=== PATIENT | female | born 1975 | race Caucasian/White ===

== ENCOUNTER → 2023-02-25 14:55 | Outpatient (CLI) | payer OTHER, SELFPAY ==
[2023-02-25 16:26] LABS: COVID-19 CEPHEID 4-PLEX PCR Negative (Negative); Influenza A - CEPHEID Flu A NEGATIVE (NEGATIVE); Influenza B - CEPHEID Flu B NEGATIVE (NEGATIVE); Respiratory Syncytial Virus Negative (Negative)
== END ==
PROVIDERS: Visit Provider Physician Assistant
DX: J02.9 Acute pharyngitis, unspecified (principal); R05.1 Acute cough
CPT/HCPCS: 0241U; 87070

== ENCOUNTER → 2023-03-08 12:47 | Outpatient (CLI) | payer OTHER, SELFPAY ==
--- NOTE | 2023-03-08 12:49 | DI.RAD.S_ITS ---
PROCEDURE: XR CHEST 2V INDICATIONS: Cough. TECHNIQUE: 2 views of the chest were acquired. COMPARISON: None. FINDINGS: Surgical changes and devices: None. Lungs and pleura: The lungs appear hyperinflated, a finding that can be seen in the setting of COPD or as result of pronounced inspiratory effort for the exam. No suspicious focal airspace opacity identified. No pleural effusions or pneumothorax. Mediastinum: Mediastinal contours are normal. Heart size is normal. Bones and chest wall: No suspicious bony abnormalities. Soft tissues appear unremarkable. IMPRESSION: No acute cardiopulmonary abnormality. Dictated by: Chito Fischer M.D. on 03/08/2023 at 13:11 Approved by: Chito Fischer M.D. on 03/08/2023 at 13:18
== END ==
PROVIDERS: Referring Provider Registered Nurse; Visit Provider Registered Nurse
DX: R05.9 Cough, unspecified (principal)
CPT/HCPCS: 71046

== ENCOUNTER → 2023-06-27 14:48 | Outpatient (CLI) | payer OTHER, SELFPAY ==
--- NOTE | 2023-06-27 14:51 | DI.RAD.S_ITS ---
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 COMPARISON: None. FINDINGS: Airway: The airway appears patent. Soft tissues: Prevertebral soft tissues are normal in thickness. The epiglottis and aryepiglottic folds appear normal. No soft tissue gas. Bones: No suspicious bony lesions. Visualized cervical spine is normally aligned. IMPRESSION: No acute abnormality. Dictated by: Hari Horan M.D. on 06/27/2023 at 16:50 Approved by: Hari Horan M.D. on 06/27/2023 at 16:50
[2023-06-27 16:25] LABS: Add Manual Diff / Slide Review NO; Basophils Absolute Auto 100 /uL (0-100); Basophils Percent Auto 0.6 % (0-2); Eosinophils Absolute Auto 100 /uL (0-450); Eosinophils Percent Auto 1.3 % (2-4); Hematocrit 38.1 % (36-46); Hemoglobin 12.2 g/dL (12.0-16.0); Lymphocytes Absolute Auto 2500 /uL (1100-4500); Lymphocytes Percent Auto 29.2 % (25-40); Mean Corpuscular HGB Conc 32.1 % (30-36); Mean Corpuscular Volume 68.7 fL (80-100); Monocytes Absolute Auto 500 /uL (0-900); Monocytes Percent Auto 5.4 % (3-14); Neutrophils Absolute Auto 5400 /uL (1500-7000); Neutrophils Percent Auto 63.5 % (50-75); Platelet Count 219 X10^3/uL (150-400); Red Blood Cell Count 5.55 X10^6/uL (4.0-5.2); Red Cell Distribution Width 15.5 % (11.6-14.8); White Blood Cell Count 8.5 X10^3/uL (4.5-11.0)
[2023-06-27 16:58] LABS: Microcytosis 1+
[2023-06-27 17:07] LABS: Alanine Aminotransferase 36 IU/L (<35); Albumin 4.1 g/dL (3.5-5.0); Albumin Globulin Ratio 1.3 (1.0-2.8); Alkaline Phosphatase 82 U/L (38-126); Aspartate Aminotransferase 42 IU/L (14-36); BUN Creatinine Ratio 21.2 (6-22); Bilirubin Total 0.5 mg/dL (0.2-1.3); Blood Urea Nitrogen 14 mg/dL (7-17); Carbon Dioxide 31 mmol/L (22-32); Chloride 102 mmol/L (98-107); Cholesterol 219 mg/dL (140-199); Estimated Glomerular Filt Rate > 60 mL/min (>60); Globulin 3.1 g/dL (1.7-4.1); Glucose 91 mg/dL (70-100); HDL Cholesterol 73 mg/dL (40-60); HEMOLYSIS < 15 (0-50); LDL Cholesterol Calculated 129 mg/dL (<100); Potassium 3.7 mmol/L (3.4-5.1); Sodium 138 mmol/L (137-145); Total Protein 7.2 g/dL (6.3-8.2); Triglycerides 84 mg/dL (35-150)
[2023-06-27 18:20] LABS: Vitamin D 25 Hydroxy (D3) 30.5 ng/mL (30.0-100.0)
[2023-06-28 09:55] LABS: HEMOLYSIS < 15 (0-50); Iron 90 ug/dL (37-170)
[2023-06-28 10:06] LABS: Percent Iron Saturation 29 % (15-50); Total Iron Binding Capacity 311 ug/dL (265-497); Transferrin 272 mg/dL (206-381)
== END ==
PROVIDERS: PCP Family Medicine; Referring Provider Family Medicine; Visit Provider Family Medicine
DX: Z13.220 Encounter for screening for lipoid disorders (principal); M24.20 Disorder of ligament, unspecified site; Z72.0 Tobacco use
CPT/HCPCS: 36415; 70360; 80053; 80061; 82306; 83540; 83550; 85025

== ENCOUNTER → 2023-07-03 07:26 | Outpatient (CLI) | payer OTHER, SELFPAY ==
--- NOTE | 2023-07-03 07:27 | DI.US.S_ITS ---
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 COMPARISON: None. FINDINGS: Stenosis calculations are based on SRU (Society of Radiologists in Ultrasound) criteria. Right side: Brachial blood pressure: 94 mm Hg. Common carotid artery peak systolic velocity: 92 cm/sec. Internal carotid artery peak systolic velocity: 94 cm/sec. Internal carotid artery end diastolic velocity: 38 cm/sec. External carotid artery peak systolic velocity: 80 cm/sec. ICA/CCA peak systolic ratio: 1 . Luciano scale imaging description: No plaque Percent internal carotid artery stenosis: Normal. Vertebral artery: Flow direction is antegrade. Left side: Brachial blood pressure: 93 mm Hg. Common carotid artery peak systolic velocity: 80 cm/sec. Internal carotid artery peak systolic velocity: 91 cm/sec. Internal carotid artery end diastolic velocity: 38 cm/sec. External carotid artery peak systolic velocity: 88 cm/sec. ICA/CCA peak systolic ratio: 1.1 . Luciano scale imaging description: No plaque Percent internal carotid artery stenosis: Normal . Vertebral artery: Flow direction is antegrade. IMPRESSION: Normal bilateral internal carotid arteries with no hemodynamically significant stenosis. Dictated by: Vadim Bush M.D. on 07/03/2023 at 9:15 Approved by: Vadim Bush M.D. on 07/03/2023 at 9:17
== END ==
LOC: US 07:26
PROVIDERS: PCP Family Medicine; Referring Provider Family Medicine; Visit Provider Family Medicine
DX: M24.20 Disorder of ligament, unspecified site (principal)
CPT/HCPCS: 93880

== ENCOUNTER → 2023-07-03 15:44 | Outpatient (CLI) | payer OTHER, SELFPAY ==
--- NOTE | 2023-07-03 15:45 | DI.MG.S_ITS ---
BILATERAL DIGITAL SCREENING MAMMOGRAM 3D/2D WITH CAD: 07/03/2023 CLINICAL: Routine screening. No prior exams were available for comparison. Both breasts are extremely dense, which lowers the sensitivity of mammography (category d />75% glandular tissue). Current study was also evaluated with a Computer Aided Detection (CAD) system. No significant masses, calcifications, or other findings are seen in either breast. IMPRESSION: NEGATIVE There is no mammographic evidence of malignancy. A 1 year screening mammogram is recommended. Based on the Tyrer Cuzick model (a risk assessment model) the patient's lifetime risk is 18.4% and her 10 year risk is 4.2%. According to the ACR, ACS, and NCCN guidelines, an annual breast MRI exam along with mammogram is recommended if the patient's lifetime risk is 20% or greater. This exam was interpreted at Station ID: [id number]. NOTE: For mammograms, a report in lay terms will be sent to the patient. Approximately 15% of breast malignancies will not be visualized mammographically. In the management of a palpable breast mass, a negative mammogram must not discourage biopsy of a clinically suspicious lesion. Electronically Signed By: Christian sotelo/flash:07/04/2023 15:37:04 letter sent: Normal Exam ACR BI-RADS Category 1: Negative [id number]
== END ==
PROVIDERS: PCP Family Medicine; Referring Provider Family Medicine; Visit Provider Family Medicine
DX: Z12.31 Encounter for screening mammogram for malignant neoplasm of breast (principal); R92.30 Dense breasts, unspecified
CPT/HCPCS: 77063; 77067

== ENCOUNTER → 2023-07-17 10:43 | Outpatient (CLI) | payer OTHER, SELFPAY ==
--- NOTE | 2023-07-17 10:44 | DI.RAD.S_ITS ---
Bone Density Report Name: ANGELIKA NAQVI Age: 48 Sex: Female Ethnicity: White Date of : 1975 Indication: postmenopausal; Referring Provider: WELLINGTON VENTURA Study: Bone densitometry was performed. Exam Date: July 17, 2023 Accession number: [id number] Bone Density: Region BMD T-score Z-score Classification AP Spine(L1-L4) 0.812 -2.1 -1.5 Osteopenia Femoral Neck (Left) 0.678 -1.5 -0.9 Osteopenia Total Hip (Left) 0.689 -2.1 -1.6 Osteopenia Femoral Neck (Right) 0.671 -1.6 -0.9 Osteopenia Total Hip (Right) 0.668 -2.2 -1.8 Osteopenia Total Hip Mean 0.679 -2.2 -1.7 Osteopenia World Health Organization criteria for BMD impression classify patients as: Normal (T-score at or above -1.0), Osteopenia (T-score between -1.0 and -2.5), or Osteoporosis (T-score at or below -2.5). 10-year Fracture Risk(1): Major Osteoporotic Fracture 4.1% Hip Fracture 0.7% Reported Risk Factors: [place] (), Neck BMD=0.671, BMI=20.1, smoking (1) FRAX(R) Version 3.08. Fracture probability calculated for an untreated patient. Fracture probability may be lower if the patient has received treatment. Impression: The patient has low bone mass, based on the Right Total Hip T-score. The patient has an estimated ten-year risk of hip fracture of 0.7% and an estimated ten-year risk of major fracture of 4.1%, based on the WHO FRAX algorithm. The patient has risk factors, including: smoking. Discussion: BONE DENSITY IS LOW AT ONE OR MORE SKELETAL SITES. This patient's lowest T-score is low at one or more skeletal sites. It meets the World Health Organization's (WHO) criteria for low bone mass (T-score between -1.0 and -2.5). The patient's 10-year risk of fracture as calculated by FRAX is less than the threshold where pharmacological therapy is recommended by the National Osteoporosis Foundation (NOF). However, all treatment decisions require clinical judgment and consideration of individual patient factors, including patient preferences, comorbidities, previous drug use, risk factors not captured in the FRAX model (e.g., frailty, falls, vitamin D deficiency, increased bone turnover, interval significant decline in bone density) and possible under or overestimation of fracture risk by FRAX. The patient should follow a healthful lifestyle (good nutrition with adequate calcium and vitamin D, and appropriate weight-bearing exercise). Follow-Up: Consider repeating this study in 2 to 3 years to reassess this patient's status, or sooner if there is some new clinical indication. Reported by: CRYSTAL REYNOLDS MD on 07/17/2023 11:16:00 AM.
== END ==
LOC: RAD 10:44
PROVIDERS: PCP Family Medicine; Referring Provider Family Medicine; Visit Provider Family Medicine
DX: Z13.820 Encounter for screening for osteoporosis (principal); M85.88 Other specified disorders of bone density and structure, other site; Z78.0 Asymptomatic menopausal state; Z72.0 Tobacco use
CPT/HCPCS: 77080

== ENCOUNTER → 2023-09-15 11:55 | Outpatient (CLI) | payer OTHER, SELFPAY ==
--- NOTE | 2023-09-15 11:57 | DI.CT.S_ITS ---
PROCEDURE: CT SOFT TISSUE NECK W CON INDICATIONS: Tyler's synd, bruxism, ongoing neck pain, hx of styloid rem TECHNIQUE: After the administration of intravenous contrast, 3.0 mm axial sections acquired from the sella to the aortic arch. Additional oblique axial 3.0 mm sections acquired through the pharynx. 3 mm thick coronal and sagittal reformats were generated. For radiation dose reduction, the following was used: automated exposure control. COMPARISON: [facility], , XR SOFT TISSUE NECK, 06/27/2023, 15:06. FINDINGS: Image quality: Excellent. Lymph nodes: No enlarged lymph nodes seen throughout the neck. Vessels: Visualized vasculature appears patent. Neck spaces: The oropharynx, nasopharynx, and pharynx demonstrate no mucosal lesions. The vocal cords, false vocal cords, pyriform sinuses, epiglottis, vallecula, and tongue base all appear normal. Extramucosal spaces appear unremarkable. Glands: The parotid and submandibular glands appear normal. Thyroid gland is unremarkable. Miscellaneous: Visualized brain and orbits appear normal. Lung apices appear clear. Superficial soft tissues appear normal. Bones: No suspicious bony lesions. Visualized sinuses and mastoids appear unremarkable. There is no visualized elongation/heavy calcification of the styloid. There is reversal of cervical curvature. There is an overall appearance of teeth crowding without visualized fracture. IMPRESSION: Reversal of cervical curvature. Dictated by: Tara Morel M.D. on 09/15/2023 at 16:45 Approved by: Tara Morel M.D. on 09/15/2023 at 16:55
== END ==
LOC: CT 11:56
PROVIDERS: PCP Family Medicine; Referring Provider Family Medicine; Visit Provider Family Medicine
DX: M26.609 Unspecified temporomandibular joint disorder, unspecified side (principal); F45.8 Other somatoform disorders; M24.20 Disorder of ligament, unspecified site; M54.2 Cervicalgia; G89.29 Other chronic pain
CPT/HCPCS: 70491; Q9967

== ENCOUNTER 2023-11-30 23:14 | Emergency (ER) | payer OTHER, SELFPAY ==
[2023-11-30 23:45] VITALS: BP 121/68; PULSE 68; RESP 18; TEMP 36.4; O2SAT 98; BMI 19.5
--- NOTE | 2023-12-01 01:25 | PC.NURSE ---
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 I answered. This is Eliot Mai's . I need someone to fucking help my she's in pain. I said I understand your frustration, but right now we are extremely busy. Sergei responded with I don't fucking care. And if someone doesn't fucking help my , I'm going to make a big fuckin' scene unless you get someone out here. Told Sergei, Sir we are very busy, as you heard I had to overhead page a trauma. Well you can spare one fucking person to come out here and help my god damn . I hung up the phone and told VERO Nash.
--- NOTE | 2023-12-01 02:02 | PC.NURSE ---
911 was called by patient or family and was seen by medics. Medics stated was calmed down and they were going to try a different hospital.
--- NOTE | 2023-12-01 15:50 | ED.DENTAL ---
HPI - Dental/Oral General Chief complaint: Dental/Oral Stated complaint: infected tooth and jaw Source: patient Mode of arrival: Ambulatory History of Present Illness HPI Narrative: Patient left without seeing provider Related Data Home Medications Medication Instructions Recorded Confirmed hydroxyzine HCl 25 mg tablet 25 mg PO DAILY 05/23/23 09/30/23 clonazepam 0.5 mg tablet mg PO 09/06/23 09/30/23 escitalopram oxalate 10 mg tablet mg PO 09/06/23 09/30/23 hydroxyzine HCl 10 mg tablet 10 mg PO ONCE PM 09/06/23 09/30/23 Previous Rx's Medication Instructions Recorded albuterol sulfate 90 mcg/actuation 2 puff inhalation Q4-6H PRN 06/27/23 aerosol inhaler shortness of breath or wheezing #8.5 grams Allergies Allergy/AdvReac Type Severity Reaction Status Date / Time No Known Drug Allergies Allergy Unverified 09/30/23 11:04 Patient History Social History Smoking Status: Current every day smoker Smoking Status: Current every day smoker alcohol intake frequency: holidays/special occasions only Substance Use Type: marijuana Exam Initial Vital Signs Initial Vital Signs: Vital Signs Temperature 97.5 F L 11/30/23 23:45 Pulse Rate 68 11/30/23 23:45 Respiratory Rate 18 11/30/23 23:45 Blood Pressure 121/68 11/30/23 23:45 Pulse Oximetry 98 11/30/23 23:45 Oxygen Delivery Method Room Air 11/30/23 23:45 Discharge Plan Departure Patient Disposition: Left Without Being Seen Clinical Impression: Patient left without being seen Prescriptions: No Action albuterol sulfate 90 mcg/actuation HFA aerosol inhaler 2 puff inhalation Q4-6H PRN (Reason: shortness of breath or wheezing) Qty: 8.5 0RF hydroxyzine HCl 25 mg tablet 25 mg PO DAILY clonazepam 0.5 mg tablet PO escitalopram oxalate 10 mg tablet PO hydroxyzine HCl 10 mg tablet 10 mg PO ONCE PM
== END 2023-12-01 02:07 | disposition left against medical advice (07) ==
PROVIDERS: Emergency Provider Emergency Medicine; PCP Family Medicine
DX: R68.84 Jaw pain (principal)
CPT/HCPCS: 99281

== ENCOUNTER → 2023-12-09 14:17 | Outpatient (CLI) | payer SELFPAY | PROVIDERS: PCP Family Medicine; Visit Provider Family Medicine | DX: N89.8 Other specified noninflammatory disorders of vagina (principal) | CPT/HCPCS: 87210 ==

== ENCOUNTER → 2024-05-11 14:27 | Outpatient (CLI) | payer OTHER, SELFPAY ==
[2024-05-11 15:09] LABS: Add Manual Diff / Slide Review NO; Basophils Absolute Auto 0 /uL (0-100); Basophils Percent Auto 0.5 % (0-2); Eosinophils Absolute Auto 100 /uL (0-450); Eosinophils Percent Auto 1.2 % (2-4); Hemoglobin 11.5 g/dL (12.0-16.0); Lymphocytes Absolute Auto 2200 /uL (1100-4500); Lymphocytes Percent Auto 39.1 % (25-40); Mean Corpuscular HGB Conc 31.9 % (30-36); Mean Corpuscular Hemoglobin 22.3 PG (26-34); Monocytes Absolute Auto 400 /uL (0-900); Monocytes Percent Auto 7.4 % (3-14); Neutrophils Absolute Auto 2900 /uL (1500-7000); Neutrophils Percent Auto 51.8 % (50-75); Platelet Count 221 X10^3/uL (150-400); Red Blood Cell Count 5.15 X10^6/uL (4.0-5.2); Red Cell Distribution Width 15.4 % (11.6-14.8); White Blood Cell Count 5.5 X10^3/uL (4.5-11.0)
[2024-05-11 15:10] LABS: Reticulocyte Count, Percent 1.1 % (1.1-2.6)
[2024-05-11 15:48] LABS: Alanine Aminotransferase 29 IU/L (<35); Albumin 3.9 g/dL (3.5-5.0); Albumin Globulin Ratio 1.6 (1.0-2.8); Alkaline Phosphatase 82 U/L (38-126); Aspartate Aminotransferase 42 IU/L (14-36); BUN Creatinine Ratio 21.8 (6-22); Bilirubin Total 0.3 mg/dL (0.2-1.3); Blood Urea Nitrogen 17 mg/dL (7-17); Calcium 8.8 mg/dL (8.4-10.2); Carbon Dioxide 29 mmol/L (22-32); Chloride 105 mmol/L (98-107); Estimated Glomerular Filt Rate > 60 mL/min (>60); Globulin 2.4 g/dL (1.7-4.1); Glucose 93 mg/dL (70-100); HEMOLYSIS < 15 (0-50); Sodium 138 mmol/L (137-145); Total Protein 6.3 g/dL (6.3-8.2)
[2024-05-11 16:16] LABS: TSH w/ Reflex to FT4 1.46 uIU/mL (0.47-4.68)
[2024-05-11 16:24] LABS: Ferritin 23 ng/mL (11-264)
== END ==
LOC: LAB 14:27
PROVIDERS: PCP Family Medicine; Referring Provider Family Medicine; Visit Provider Family Medicine
DX: R71.8 Other abnormality of red blood cells (principal); M24.20 Disorder of ligament, unspecified site; M54.2 Cervicalgia; R19.4 Change in bowel habit; K13.79 Other lesions of oral mucosa; R51.9 Headache, unspecified; R25.2 Cramp and spasm; Z72.0 Tobacco use
CPT/HCPCS: 36415; 80053; 82728; 84443; 85025; 85045; 86038

== ENCOUNTER → 2024-07-04 13:04 | Outpatient (CLI) | payer OTHER, SELFPAY ==
--- NOTE | 2024-07-04 13:06 | DI.CT.S_ITS ---
PROCEDURE: CT FACIAL BONES WO CON INDICATIONS: Persistent mouth pain TECHNIQUE: Noncontrast 2.5 mm thick axial images acquired from the mandible through the frontal sinuses, with coronal and sagittal reformatting. For radiation dose reduction, the following was used: automated exposure control, adjustment of mA and/or kV according to patient size. COMPARISON: [facility], CT, CT SOFT TISSUE NECK W CON, 09/15/2023, 12:31. FINDINGS: Image quality: Diagnostic Bones: No displaced fracture of the mandible. The zygomatic arches are intact. The orbital olvera appear intact. Pterygoid plates are intact. Nasal bone appears unremarkable. There are elongated styloid processes bilaterally. The right styloid process reaches the axial level of the odontoid process. The left styloid process reaches the level of the tonsillar tissues at the axial level of the C2-C3 disc space. Prior dental work. No significant periapical opacities. Sinuses and mastoids: Mastoids and paranasal sinuses are clear Soft tissues: No suspicious calcifications. No fluid collection. 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 Other findings above Dictated by: Christian Melara M.D. on 07/04/2024 at 19:09 Approved by: Christian Melara M.D. on 07/04/2024 at 19:14
== END ==
PROVIDERS: PCP Family Medicine; Referring Provider Family Medicine; Visit Provider Family Medicine
DX: M54.2 Cervicalgia (principal); F45.8 Other somatoform disorders; M24.20 Disorder of ligament, unspecified site; M26.609 Unspecified temporomandibular joint disorder, unspecified side; Z72.0 Tobacco use
CPT/HCPCS: 70486

== ENCOUNTER 2024-07-17 15:47 | Emergency (ER) | payer OTHER, SELFPAY ==
[2024-07-17 15:57] VITALS: BP 133/88; PULSE 65; RESP 17; TEMP 36.6; O2SAT 100
--- NOTE | 2024-07-17 16:26 | ED_ITS ---
HPI - Headache <Frandy Leon MD - Last Filed: 07/25/24 04:53> General Chief Complaint: Headache Stated Complaint: facial numbness, headache Time Seen by Provider: 07/17/24 16:26 Mode of arrival: Ambulatory History of Present Illness HPI Narrative: Patient is a female with a history of [place] syndrome who presents with worsening headache, facial numbness, and swelling in the mouth. She reports that her symptoms have been gradually worsening over the past week, with significant numbness on the right side of her face starting today. She has a history of a right-sided styloidectomy performed three years ago in [place], with approximately [address] scans have shown that the styloid process on the left side is now in contact with the C2-C3 vertebrae, possibly causing nerve compression. The patient has been experiencing pain despite being on gabapentin and an antiviral medication (acyclovir or valacyclovir) prescribed by her PCP. She also reports changes in her mouth observed by her dentist, including swelling and possible mandibular jhoana growth. The patient has been referred to an ENT and is scheduled for an appointment next month. She denies any leg or arm numbness, slurred speech, or significant changes in vision, although she notes some visual disturbances with eye movement. Medications: Gabapentin, antiviral medication (acyclovir or valacyclovir). Past Medical History: [place] syndrome, right-sided styloidectomy, diabetes. Surgical History: Right-sided styloidectomy performed three years ago in [place]. Related Data Home Medications Medication Instructions Recorded Confirmed dextroamphetamine-amphetamine ER 1 cap PO QAM PRN 06/22/24 06/22/24 10 mg 24hr capsule,extend release paroxetine HCl 20 mg tablet 20 mg PO DAILY 06/22/24 06/22/24 Previous Rx's Medication Instructions Recorded albuterol sulfate 90 mcg/actuation 2 puff inhalation Q4-6H PRN 06/27/23 aerosol inhaler shortness of breath or wheezing #8.5 grams benzonatate 200 mg capsule 200 mg PO BID PRN cough #14 caps 04/09/24 pregabalin 25 mg capsule 25 mg PO DAILY #30 caps 06/22/24 valacyclovir 500 mg tablet 500 mg PO BID #180 tabs 06/25/24 Allergies Allergy/AdvReac Type Severity Reaction Status Date / Time No Known Drug Allergies Allergy Verified 06/22/24 07:29 Review of Systems <Frandy Leon MD - Last Filed: 07/25/24 04:53> Review of Systems Narrative: Constitutional: Reports worsening headache and facial numbness. ENT: Reports swelling and changes in the mouth, possible mandibular jhoana growth. Neurological: Reports facial numbness, denies leg or arm numbness, slurred speech, or significant changes in vision, notes some visual disturbances with eye movement. Patient History <Frandy Leon MD - Last Filed: 07/25/24 04:53> Social History Smoking Status: Current every day smoker Smoking Status: Current every day smoker alcohol intake frequency: holidays/special occasions only Exam <Frandy Leon MD - Last Filed: 07/25/24 04:53> Narrative Exam Narrative: General: Well appearing, well nourished, in no distress. Skin: Good turgor, no rash, unusual bruising or prominent lesions. Head: Normocephalic, atraumatic. HEENT: Conjunctiva clear, EOM intact, PERRL, mucous membranes moist. Swelling and inflammation in the mouth, possible growth behind the back right tooth, tenderness near the styloidectomy incision. Neck: Supple, normal ROM. Heart: Regular rate and rhythm, no murmur or gallop or rubs. Lungs: Clear to auscultation. No rales, rhonchi, or wheezes. Abdomen: Soft and nontender. Bowel sounds normal. No mass or hernia. Back: Spine normal without deformity or tenderness, no CVA tenderness. Extremities: No deformities, edema. Peripheral pulses intact. Neurologic: CN 2-12 normal. Normal sensation and motor exam. Facial numbness on the right side, no focal deficits, normal coordination and strength tests. Psychiatric: Oriented X3. Normal mood and affect. Initial Vital Signs Initial Vital Signs: Vital Signs Temperature 98 F 07/17/24 15:57 Pulse Rate 65 07/17/24 15:57 Respiratory Rate 17 07/17/24 15:57 Blood Pressure 133/88 07/17/24 15:57 Pulse Oximetry 100 07/17/24 15:57 Oxygen Delivery Method Room Air 07/17/24 15:57 <Memo Gaona MD - Last Filed: 07/18/24 04:20> Initial Vital Signs Initial Vital Signs: Vital Signs Temperature 98 F 07/17/24 15:57 Pulse Rate 65 07/17/24 15:57 Respiratory Rate 17 07/17/24 15:57 Blood Pressure 133/88 07/17/24 15:57 Pulse Oximetry 100 07/17/24 15:57 Oxygen Delivery Method Room Air 07/17/24 15:57 Course <Frandy Leon MD - Last Filed: 07/25/24 04:53> Orders Ordered: Discontinued Medications Acetaminophen (Acetaminophen 325 Mg Tablet) 650 mg PO Q6H PRN PRN Reason: Fever/Mild Pain (1-3) Dexamethasone (Dexamethasone 10 Mg/Ml Vial) 10 mg IV NOW ONE Stop: 07/17/24 21:54 Last Admin: 07/17/24 22:05 Dose: 10 mg Documented By: JAMIE Diphenhydramine HCl (Diphenhydramine 50 Mg/Ml Vial) 25 mg IV NOW ONE Stop: 07/17/24 17:52 Last Admin: 07/17/24 18:51 Dose: 25 mg Documented By: JEANNIE Lactated Ringer's (Lactated Ringers) 1,000 mls @ 1,000 mls/hr IV BOLUS ONE Stop: 07/17/24 18:50 Last Infusion: 07/17/24 19:45 Dose: Infused Documented By: Admin: 07/17/24 18:48 Dose: 1,000 mls/hr Documented By: JEANNIE Ketorolac Tromethamine (Ketorolac 30 Mg/Ml Vial) 15 mg IV NOW ONE Stop: 07/17/24 21:54 Last Admin: 07/17/24 22:05 Dose: 15 mg Documented By: JAMIE Ondansetron HCl (Ondansetron 4 Mg/2 Ml Inj) 4 mg IV NOW PRN PRN Reason: Nausea And Vomiting Ondansetron HCl (Ondansetron 4 Mg Odt Prepack) 1 bottle MISC DIRECTED ONE Stop: 07/17/24 21:58 Last Admin: 07/17/24 22:05 Dose: 1 bottle Documented By: JAMIE Prochlorperazine (Prochlorperazine 10 Mg/2 Ml Vial) 5 mg IV NOW ONE Stop: 07/17/24 17:52 Last Admin: 07/17/24 18:52 Dose: 5 mg Documented By: JEANNIE Vital Signs Vital signs: Vital Signs - 8 hr 07/17/24 21:15 07/17/24 21:30 07/17/24 22:00 Pulse Rate 69 75 68 Respiratory Rate 16 16 16 Blood Pressure 124/72 126/67 117/69 Pulse Oximetry 97 96 96 Oxygen Delivery Method Room Air Room Air Room Air <Memo Gaona MD - Last Filed: 07/18/24 04:20> Orders Ordered: Discontinued Medications Acetaminophen (Acetaminophen 325 Mg Tablet) 650 mg PO Q6H PRN PRN Reason: Fever/Mild Pain (1-3) Dexamethasone (Dexamethasone 10 Mg/Ml Vial) 10 mg IV NOW ONE Stop: 07/17/24 21:54 Last Admin: 07/17/24 22:05 Dose: 10 mg Documented By: JAMIE Diphenhydramine HCl (Diphenhydramine 50 Mg/Ml Vial) 25 mg IV NOW ONE Stop: 07/17/24 17:52 Last Admin: 07/17/24 18:51 Dose: 25 mg Documented By: JEANNIE Lactated Ringer's (Lactated Ringers) 1,000 mls @ 1,000 mls/hr IV BOLUS ONE Stop: 07/17/24 18:50 Last Infusion: 07/17/24 19:45 Dose: Infused Documented By: Admin: 07/17/24 18:48 Dose: 1,000 mls/hr Documented By: JEANNIE Ketorolac Tromethamine (Ketorolac 30 Mg/Ml Vial) 15 mg IV NOW ONE Stop: 07/17/24 21:54 Last Admin: 07/17/24 22:05 Dose: 15 mg Documented By: JAMIE Ondansetron HCl (Ondansetron 4 Mg/2 Ml Inj) 4 mg IV NOW PRN PRN Reason: Nausea And Vomiting Ondansetron HCl (Ondansetron 4 Mg Odt Prepack) 1 bottle MISC DIRECTED ONE Stop: 07/17/24 21:58 Last Admin: 07/17/24 22:05 Dose: 1 bottle Documented By: JAMIE Prochlorperazine (Prochlorperazine 10 Mg/2 Ml Vial) 5 mg IV NOW ONE Stop: 07/17/24 17:52 Last Admin: 07/17/24 18:52 Dose: 5 mg Documented By: JEANNIE Vital Signs Vital signs: Vital Signs - 8 hr 07/17/24 21:15 07/17/24 21:30 07/17/24 22:00 Pulse Rate 69 75 68 Respiratory Rate 16 16 16 Blood Pressure 124/72 126/67 117/69 Pulse Oximetry 97 96 96 Oxygen Delivery Method Room Air Room Air Room Air MDM - Headache <Frandy Leon MD - Last Filed: 07/25/24 04:53> Lab Data 07/17/24 16:55 07/17/24 16:55 Labs: Lab Results 07/17/24 Range/Units 16:55 WBC 5.7 (4.5-11.0) X10^3/uL RBC 5.51 H (4.0-5.2) X10^6/uL Hgb 12.2 (12.0-16.0) g/dL Hct 38.2 (36-46) % MCV 69.3 L (80-100) fL MCH 22.1 L (26-34) PG MCHC 31.9 (30-36) % RDW 14.7 (11.6-14.8) % Plt Count 223 (150-400) X10^3/uL Neut % (Auto) 58.4 (50-75) % Lymph % (Auto) 31.5 (25-40) % [place] % (Auto) 7.9 (3-14) % Eos % (Auto) 1.6 L (2-4) % Baso % (Auto) 0.6 (0-2) % Neut # (Auto) 3400 (5090-7207) /uL Lymph # (Auto) 1800 (2027-5740) /uL [place] # (Auto) 500 (0-900) /uL Eos # (Auto) 100 (0-450) /uL Baso # (Auto) 0 (0-100) /uL Nucleated RBCs Cancelled Hypersegmented Neuts Cancelled Hypogranular Neuts Cancelled Reactive Lymphocytes Cancelled Smudge Cells Cancelled Other Cell Type Cancelled Toxic Granulation Cancelled Toxic Vacuolation Cancelled Dohle Bodies Cancelled Ryan Rods Cancelled WBC Morphology Comment Cancelled Platelet Estimate Cancelled Clumped Platelets Cancelled Plt Morphology Comment Cancelled RBC Morphology Cancelled Dimorphic RBCs Cancelled Polychromasia Cancelled Hypochromasia Cancelled Poikilocytosis Cancelled Basophilic Stippling Cancelled Anisocytosis Cancelled Microcytosis Cancelled Macrocytosis Cancelled Spherocytes Cancelled Pappenheimer Bodies Cancelled Sickle Cells Cancelled Target Cells Cancelled Tear Drop Cells Cancelled Ovalocytes Cancelled Stomatocytes Cancelled Helmet Cells Cancelled Roe-Nada Bodies Cancelled Wade Rings Cancelled Jarod Cells Cancelled Acanthocytes (Spur) Cancelled Rouleaux Cancelled Schistocytes Cancelled PT 11.0 (9.4-12.5) SECONDS INR 1.0 (0.9-1.3) APTT 32 (25.1-36.5) SECONDS Sodium 140 (137-145) mmol/L Potassium 3.8 (3.4-5.1) mmol/L Chloride 107 (98-107) mmol/L Carbon Dioxide 30 (22-32) mmol/L BUN 13 (7-17) mg/dL Creatinine 0.81 (0.52-1.04) mg/dL Estimated GFR > 60 (>60) mL/min BUN/Creatinine Ratio 16.0 (6-22) Glucose 86 (70-100) mg/dL Calcium 8.8 (8.4-10.2) mg/dL Magnesium 2.1 (1.6-2.3) mg/dL Total Bilirubin 0.4 (0.2-1.3) mg/dL AST 41 H (14-36) IU/L ALT 28 (<35) IU/L Alkaline Phosphatase 77 (38-126) U/L Total Creatine Kinase 114 (30-135) U/L Troponin I < 0.012 (0.01-0.034) ng/mL Total Protein 7.0 (6.3-8.2) g/dL Albumin 4.2 (3.5-5.0) g/dL Globulin 2.8 (1.7-4.1) g/dL Albumin/Globulin Ratio 1.5 (1.0-2.8) MDM Narrative Medical decision making narrative: INITIAL EVALUATION AND PLAN: - CT scan to rule out stroke and assess for any interval changes or deep space infections. - Lab work to check for inflammatory markers. - Administer headache cocktail for pain management. - Monitor for any signs of stroke or other neurological deficits. - Provide nausea medication to manage symptoms. - Differential diagnosis includes but is not limited to: stroke, deep space infection, nerve compression, viral infection, and [place] syndrome exacerbation. -patient will obtain headache cocktail, imaging to rule out stroke as well as to evaluate the neck and potential for nerve compression with her [place] syndrome diagnosis. 07/17/24, Jimenez Brizuela. Signout from Dr Leon. <Memo Gaona MD - Last Filed: 07/18/24 04:20> Lab Data Attestation: I reviewed the patient's lab results. Lab results narrative: White blood cell count 5700, hemoglobin 12.2, platelets adequate. Glucose 86, electrolytes normal, renal function normal. Liver functions normal. Troponin negative. Labs: Lab Results 07/17/24 Range/Units 16:55 WBC 5.7 (4.5-11.0) X10^3/uL RBC 5.51 H (4.0-5.2) X10^6/uL Hgb 12.2 (12.0-16.0) g/dL Hct 38.2 (36-46) % MCV 69.3 L (80-100) fL MCH 22.1 L (26-34) PG MCHC 31.9 (30-36) % RDW 14.7 (11.6-14.8) % Plt Count 223 (150-400) X10^3/uL Neut % (Auto) 58.4 (50-75) % Lymph % (Auto) 31.5 (25-40) % [place] % (Auto) 7.9 (3-14) % Eos % (Auto) 1.6 L (2-4) % Baso % (Auto) 0.6 (0-2) % Neut # (Auto) 3400 (6665-9084) /uL Lymph # (Auto) 1800 (3355-7611) /uL [place] # (Auto) 500 (0-900) /uL Eos # (Auto) 100 (0-450) /uL Baso # (Auto) 0 (0-100) /uL Nucleated RBCs Cancelled Hypersegmented Neuts Cancelled Hypogranular Neuts Cancelled Reactive Lymphocytes Cancelled Smudge Cells Cancelled Other Cell Type Cancelled Toxic Granulation Cancelled Toxic Vacuolation Cancelled Dohle Bodies Cancelled Ryan Rods Cancelled WBC Morphology Comment Cancelled Platelet Estimate Cancelled Clumped Platelets Cancelled Plt Morphology Comment Cancelled RBC Morphology Cancelled Dimorphic RBCs Cancelled Polychromasia Cancelled Hypochromasia Cancelled Poikilocytosis Cancelled Basophilic Stippling Cancelled Anisocytosis Cancelled Microcytosis Cancelled Macrocytosis Cancelled Spherocytes Cancelled Pappenheimer Bodies Cancelled Sickle Cells Cancelled Target Cells Cancelled Tear Drop Cells Cancelled Ovalocytes Cancelled Stomatocytes Cancelled Helmet Cells Cancelled Roe-Nada Bodies Cancelled Wade Rings Cancelled [place] Cells Cancelled Acanthocytes (Spur) Cancelled Rouleaux Cancelled Schistocytes Cancelled PT 11.0 (9.4-12.5) SECONDS INR 1.0 (0.9-1.3) APTT 32 (25.1-36.5) SECONDS Sodium 140 (137-145) mmol/L Potassium 3.8 (3.4-5.1) mmol/L Chloride 107 (98-107) mmol/L Carbon Dioxide 30 (22-32) mmol/L BUN 13 (7-17) mg/dL Creatinine 0.81 (0.52-1.04) mg/dL Estimated GFR > 60 (>60) mL/min BUN/Creatinine Ratio 16.0 (6-22) Glucose 86 (70-100) mg/dL Calcium 8.8 (8.4-10.2) mg/dL Magnesium 2.1 (1.6-2.3) mg/dL Total Bilirubin 0.4 (0.2-1.3) mg/dL AST 41 H (14-36) IU/L ALT 28 (<35) IU/L Alkaline Phosphatase 77 (38-126) U/L Total Creatine Kinase 114 (30-135) U/L Troponin I < 0.012 (0.01-0.034) ng/mL Total Protein 7.0 (6.3-8.2) g/dL Albumin 4.2 (3.5-5.0) g/dL Globulin 2.8 (1.7-4.1) g/dL Albumin/Globulin Ratio 1.5 (1.0-2.8) Imaging Data CT scan - head: Radiologist's Impression: [address] [address] [address] Scan Report Signed Patient: Eliot Verduzco MR#: [id number] : 1975 Acct:[id number] Age/Sex: 49 / F Date of Service: 07/17/24 Loc: ED Accession Number: [id number] Procedure: CT head/brain wo con Ordering Provider: Frandy Leon MD PROCEDURE: CT HEAD/BRAIN WO CON INDICATIONS: HER DOC SAID HER SYMPTOMS COULD BE A STROKE/NOT EAGLES SYNDR TECHNIQUE: Noncontrast 4.5 mm thick angled axial sections acquired from the foramen magnum to the vertex, with coronal and sagittal reformats. For radiation dose reduction, the following was used: automated exposure control, adjustment of mA and/or kV according to patient size. COMPARISON: [facility], CT, CT FACIAL BONES WO CON, 07/04/2024, 13:09. FINDINGS: Image quality: Diagnostic CSF spaces: Basal cisterns are patent. Lateral ventricles are symmetric. Volume: There is mild volume loss. Brain: No acute hemorrhage. No large territory loss of pena-white differentiation Craniofacial structures: No dense paranasal sinus opacity. IMPRESSION: No acute intracranial pathology. If there is high concern for parenchymal pathology, consider further evaluation with MRI. Dictated by: Christian Melara M.D. on 07/17/2024 at 17:19 Approved by: Christian Melara M.D. on 07/17/2024 at 17:20 CT face noncontrast: Radiologist's Impression: [place] [address] CT Scan Report Signed Patient: Eliot Verduzco MR#: [id number] : 1975 Acct:[id number] Age/Sex: 49 / F Date of Service: 07/17/24 Loc: ED Accession Number: [id number] Procedure: CT facial bones wo con Ordering Provider: Frandy Leon MD PROCEDURE: CT FACIAL BONES WO CON INDICATIONS: numbness to right side of face TECHNIQUE: Noncontrast 2.5 mm thick axial images acquired from the mandible through the frontal sinuses, with coronal and sagittal reformatting. For radiation dose reduction, the following was used: automated exposure control, adjustment of mA and/or kV according to patient size. COMPARISON: [facility], CT, CT FACIAL BONES WO CON, 07/04/2024, 13:09. FINDINGS: Image quality: Diagnostic Bones: No displaced fracture. Orbital olvera are intact. Nasal bone and septum are intact. Mandible is intact. Zygomatic arches and pterygoid plates are intact. No skull base fracture. Bilateral elongated styloid processes again seen. This is greater on the left Sinuses and mastoids: No significant opacification. Soft tissues: No masses, hematoma, or fluid collection. No lymphadenopathy by size criteria. Brain: Separately dictated IMPRESSION: No acute fracture. No large fluid collection. No significant paranasal sinus opacity or mastoid effusion. Elongated styloid processes again seen. Dictated by: Christian Melara M.D. on 07/17/2024 at 17:23 Approved by: Christian Melara M.D. on 07/17/2024 at 17:25 CT angiogram head and neck vessels: Radiologist's Impression: [address] [address] [address] Scan Report Signed Patient: Eliot Verduzco MR#: [id number] : 1975 Acct:[id number] Age/Sex: 49 / F Date of Service: 07/17/24 Loc: ED Accession Number: [id number] Procedure: CT angio head and neck Ordering Provider: Frandy Leon MD PROCEDURE: CT ANGIO HEAD AND NECK INDICATIONS: r/o stroke TECHNIQUE: After the administration of intravenous contrast, 1 mm thick sections acquired from the aortic arch through the [place] of [place]. 3-dimensional nfxojgv-tpeuazitg-fyfwvpfrch (MIP) and/or volume rendering reformats were acquired of the central intracranial vasculature and neck separately. For radiation dose reduction, the following was used: automated exposure control, adjustment of mA and/or kV according to patient size. COMPARISON: [facility], CT, CT SOFT TISSUE NECK W CON, 09/15/2023, 12:31. 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 ICAs: Patent ECAs: Origins are patent. Vertebral arteries: Patent Soft tissues: Facial findings are separately dictated. No enlarged lymph nodes by size criteria identified. Lung apices: Emphysematous changes partially seen Bones: No acute or suspicious abnormality. Reversal of the normal cervical lordosis. IMPRESSION: No large vessel occlusion or high-grade stenosis. Consider MRI if there is high concern for infarct. Other findings above. Any quantitative measurements of stenosis were performed using NASCET criteria. Dictated by: Christian Melara M.D. on 07/17/2024 at 17:26 Approved by: Christian Melara M.D. on 07/17/2024 at 17:30 ECG Data Attestation: I personally reviewed and interpreted this ECG as follows: Interpretation: Sinus bradycardia with rate of 55, no obvious ST segment elevation or depression changes. OR 182, QRS 84, QTC 397. MDM Narrative Medical decision making narrative: INITIAL EVALUATION AND PLAN: - CT scan to rule out stroke and assess for any interval changes or deep space infections. - Lab work to check for inflammatory markers. - Administer headache cocktail for pain management. - Monitor for any signs of stroke or other neurological deficits. - Provide nausea medication to manage symptoms. - Differential diagnosis includes but is not limited to: stroke, deep space infection, nerve compression, viral infection, and [place] syndrome exacerbation. -patient will obtain headache cocktail, imaging to rule out stroke as well as to evaluate the neck and potential for nerve compression with her [place] syndrome diagnosis. 07/17/24, Jimenez Brizuela. Signout from Dr Leon. Patient examined by me, chart reviewed. Patient with sycuan syndrome status post right-sided styloidectomy awaiting further otolaryngology follow up, recurrent headaches, right-sided headache and some facial numbness, worried about recurrence related to her sycuan syndrome calcification of the styloid tendons. She has received IV Compazine and Benadryl and fluids, some improvement of headache but still has headache. CT/CTA imaging studies ordered. Assumed care. CT head noncontrast, no acute changes, see radiology report. CT face noncontrast, no acute changes, see radiology report. CT angiogram head and neck vessels, no significant narrowing, no thromboses, no dissection changes. See radiology report. Patient has partial response to prior IV Compazine and Benadryl and fluids, we will add IV Toradol and IV Decadron. Symptoms improved. Regarding her sycuan syndrome she would be interested in a few days prednisone steroid to try, we will send Rx for prednisone 5 day pulse to her pharmacy. Recheck with her primary care advised. Follow up with Otolaryngology as planned. Discharged home with family. Discharge Plan Departure Patient Disposition: Home Clinical Impression: Headache, Right facial pain, [place] syndrome Activity Restrictions/Additional Instructions: Ms Verduzco, History of [place] syndrome calcification of the styloid process status post prior styloidectomy surgery, awaiting otolaryngology follow up, with recurrent migraine headaches. Right-sided headache and facial pain. CT head, CT face, CT angiogram head and neck vessels studies were done and showed no acute changes today. IV medications were given to help with your headache symptoms, including steroids that might help with inflammation related to [place] syndrome. You are interested in trying steroids for a few days and follow up if this might help your right facial [place] syndrome from related discomfort. Prescription sent to your pharmacy. Continue your gabapentin other chronic medications. Home pack of Zofran to use to control nausea if needed. Recheck with your regular doctor if symptoms are persisting on Saturday. Return to this/nearest emergency department for any change worsening symptoms or any concerns prior Prescriptions: No Action valacyclovir 500 mg tablet 500 mg PO BID Qty: 180 0RF albuterol sulfate 90 mcg/actuation HFA aerosol inhaler 2 puff inhalation Q4-6H PRN (Reason: shortness of breath or wheezing) Qty: 8.5 0RF paroxetine HCl 20 mg tablet 20 mg PO DAILY dextroamphetamine-amphetamine 10 mg capsule,extended release 24hr 1 cap PO QAM PRN pregabalin 25 mg capsule 25 mg PO DAILY Qty: 30 0RF benzonatate 200 mg capsule 200 mg PO BID PRN (Reason: cough) Qty: 14 0RF Referrals: Myriam Houser DO [Primary Care Provider] - Stand Alone Forms: Patient Portal/API/Survey
--- NOTE | 2024-07-17 16:33 | EKG_ITS ---
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
--- NOTE | 2024-07-17 16:34 | DI.CT.S_ITS ---
PROCEDURE: CT FACIAL BONES WO CON INDICATIONS: numbness to right side of face TECHNIQUE: Noncontrast 2.5 mm thick axial images acquired from the mandible through the frontal sinuses, with coronal and sagittal reformatting. For radiation dose reduction, the following was used: automated exposure control, adjustment of mA and/or kV according to patient size. COMPARISON: [facility], CT, CT FACIAL BONES WO CON, 07/04/2024, 13:09. FINDINGS: Image quality: Diagnostic Bones: No displaced fracture. Orbital olvera are intact. Nasal bone and septum are intact. Mandible is intact. Zygomatic arches and pterygoid plates are intact. No skull base fracture. Bilateral elongated styloid processes again seen. This is greater on the left Sinuses and mastoids: No significant opacification. Soft tissues: No masses, hematoma, or fluid collection. No lymphadenopathy by size criteria. Brain: Separately dictated IMPRESSION: No acute fracture. No large fluid collection. No significant paranasal sinus opacity or mastoid effusion. Elongated styloid processes again seen. Dictated by: Christian Melara M.D. on 07/17/2024 at 17:23 Approved by: Christian Melara M.D. on 07/17/2024 at 17:25
--- NOTE | 2024-07-17 16:34 | DI.CT.S_ITS ---
PROCEDURE: CT ANGIO HEAD AND NECK INDICATIONS: r/o stroke TECHNIQUE: After the administration of intravenous contrast, 1 mm thick sections acquired from the aortic arch through the [place] [facility] [place]. 3-dimensional tavmavu-rihryqhox-gwnldnvmnt (MIP) and/or volume rendering reformats were acquired of the central intracranial vasculature and neck separately. For radiation dose reduction, the following was used: automated exposure control, adjustment of mA and/or kV according to patient size. COMPARISON: [facility], CT, CT SOFT TISSUE NECK W CON, 09/15/2023, 12:31. 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 ICAs: Patent ECAs: Origins are patent. Vertebral arteries: Patent Soft tissues: Facial findings are separately dictated. No enlarged lymph nodes by size criteria identified. Lung apices: Emphysematous changes partially seen Bones: No acute or suspicious abnormality. Reversal of the normal cervical lordosis. IMPRESSION: No large vessel occlusion or high-grade stenosis. Consider MRI if there is high concern for infarct. Other findings above. Any quantitative measurements of stenosis were performed using NASCET criteria. Dictated by: Christian Melara M.D. on 07/17/2024 at 17:26 Approved by: Christian Melara M.D. on 07/17/2024 at 17:30
--- NOTE | 2024-07-17 16:49 | DI.CT.S_ITS ---
PROCEDURE: CT HEAD/BRAIN WO CON INDICATIONS: HER DOC SAID HER SYMPTOMS COULD BE A STROKE/NOT EAGLES SYNDR TECHNIQUE: Noncontrast 4.5 mm thick angled axial sections acquired from the foramen magnum to the vertex, with coronal and sagittal reformats. For radiation dose reduction, the following was used: automated exposure control, adjustment of mA and/or kV according to patient size. COMPARISON: [facility], CT, CT FACIAL BONES WO CON, 07/04/2024, 13:09. FINDINGS: Image quality: Diagnostic CSF spaces: Basal cisterns are patent. Lateral ventricles are symmetric. Volume: There is mild volume loss. Brain: No acute hemorrhage. No large territory loss of pena-white differentiation Craniofacial structures: No dense paranasal sinus opacity. IMPRESSION: No acute intracranial pathology. If there is high concern for parenchymal pathology, consider further evaluation with MRI. Dictated by: Christian Melara M.D. on 07/17/2024 at 17:19 Approved by: Christian Melara M.D. on 07/17/2024 at 17:20
[2024-07-17 17:10] LABS: Add Manual Diff / Slide Review NO; Basophils Absolute Auto 0 /uL (0-100); Basophils Percent Auto 0.6 % (0-2); Eosinophils Absolute Auto 100 /uL (0-450); Eosinophils Percent Auto 1.6 % (2-4); Hematocrit 38.2 % (36-46); Hemoglobin 12.2 g/dL (12.0-16.0); Lymphocytes Absolute Auto 1800 /uL (1100-4500); Lymphocytes Percent Auto 31.5 % (25-40); Mean Corpuscular HGB Conc 31.9 % (30-36); Mean Corpuscular Hemoglobin 22.1 PG (26-34); Mean Corpuscular Volume 69.3 fL (80-100); Monocytes Absolute Auto 500 /uL (0-900); Monocytes Percent Auto 7.9 % (3-14); Neutrophils Absolute Auto 3400 /uL (1500-7000); Neutrophils Percent Auto 58.4 % (50-75); Platelet Count 223 X10^3/uL (150-400); Red Blood Cell Count 5.51 X10^6/uL (4.0-5.2); Red Cell Distribution Width 14.7 % (11.6-14.8); White Blood Cell Count 5.7 X10^3/uL (4.5-11.0)
[2024-07-17 17:14] LABS: PTT Partial Thromboplastin Tim 32 SECONDS (25.1-36.5)
[2024-07-17 17:15] LABS: Alanine Aminotransferase 28 IU/L (<35); Albumin 4.2 g/dL (3.5-5.0); Albumin Globulin Ratio 1.5 (1.0-2.8); Alkaline Phosphatase 77 U/L (38-126); Aspartate Aminotransferase 41 IU/L (14-36); Bilirubin Total 0.4 mg/dL (0.2-1.3); Blood Urea Nitrogen 13 mg/dL (7-17); Calcium 8.8 mg/dL (8.4-10.2); Carbon Dioxide 30 mmol/L (22-32); Chloride 107 mmol/L (98-107); Creatine Kinase 114 U/L (30-135); Estimated Glomerular Filt Rate > 60 mL/min (>60); Globulin 2.8 g/dL (1.7-4.1); Glucose 86 mg/dL (70-100); HEMOLYSIS < 15 (0-50); Magnesium 2.1 mg/dL (1.6-2.3); Potassium 3.8 mmol/L (3.4-5.1); Sodium 140 mmol/L (137-145)
[2024-07-17 17:27] LABS: Troponin I < 0.012 ng/mL (0.01-0.034)
[2024-07-17] MEDS: LACTATED RINGERS 1,000 ML 1000 ML IV (18:48)
[2024-07-17] MEDS: diphenhydrAMINE 50 MG/ML VIAL 25 MG IV (18:51)
[2024-07-17 18:52] VITALS: BP 103/68; PULSE 54
[2024-07-17] MEDS: PROCHLORPERAZINE 10 MG/2 ML VIAL 5 MG IV (18:52)
[2024-07-17 18:53] VITALS: BP 103/62; PULSE 54; RESP 17; O2SAT 98
[2024-07-17 21:15] VITALS: BP 124/72; PULSE 69; RESP 16; O2SAT 97
[2024-07-17 21:30] VITALS: BP 126/67; PULSE 75; RESP 16; O2SAT 96
[2024-07-17 22:00] VITALS: BP 117/69; PULSE 68; RESP 16; O2SAT 96
[2024-07-17] MEDS: KETOROLAC 30 MG/ML VIAL 15 MG IV (22:05)
[2024-07-17] MEDS: ONDANSETRON 4 MG ODT PREPACK 1 BOTTLE MISC (22:05)
[2024-07-17] MEDS: DEXAMETHASONE 10 MG/ML VIAL IV (22:05)
== END 2024-07-17 22:28 | disposition home or self-care (01) ==
PROVIDERS: Emergency Medicine; Emergency Provider Emergency Medicine; PCP Family Medicine
DX: M24.20 Disorder of ligament, unspecified site (principal); R20.0 Anesthesia of skin; R51.9 Headache, unspecified; R00.1 Bradycardia, unspecified; R29.701 NIHSS score 1
CPT/HCPCS: 36415; 70450; 70486; 70496; 70498; 80053; 82550; 83735; 84484; 85025; 85610; 85730; 93005; 93010; 96361; 96374; 96375; 99284; 99285; J0780; J1100; J1200; J1885; Q9967

== ENCOUNTER → 2024-08-11 18:24 | Outpatient (CLI) | payer OTHER, SELFPAY ==
[2024-08-11 20:36] LABS: COVID-19 CEPHEID 4-PLEX PCR Negative (Negative); Influenza A - CEPHEID Flu A NEGATIVE (NEGATIVE); Influenza B - CEPHEID Flu B NEGATIVE (NEGATIVE); Respiratory Syncytial Virus Negative (Negative)
== END ==
PROVIDERS: PCP Family Medicine; Visit Provider Nurse Practitioner Family
DX: R05.1 Acute cough (principal); J02.9 Acute pharyngitis, unspecified
CPT/HCPCS: 0241U; 87070

== ENCOUNTER → 2024-11-25 11:39 | Outpatient (CLI) | payer OTHER, SELFPAY ==
[2024-11-25 13:47] LABS: Urine N gonorrhoeae NOT DETECTED
[2024-11-25 13:49] LABS: Urine Chlamydia NOT DETECTED
[2024-11-26 16:33] LABS: HIV 1 & 2 Ab/Ag 4th Gen Combo NEGATIVE (NEGATIVE); Hep C Virus Ab w/Reflex Quant NEGATIVE s/c (NEGATIVE)
== END ==
PROVIDERS: PCP Family Medicine; Referring Provider Family Medicine; Visit Provider Family Medicine
DX: Z11.3 Encounter for screening for infections with a predominantly sexual mode of transmission (principal); N89.8 Other specified noninflammatory disorders of vagina; R10.9 Unspecified abdominal pain
CPT/HCPCS: 36415; 86780; 86803; 87389; 87491; 87591

== ENCOUNTER → 2024-12-18 10:25 | Outpatient (CLI) | payer OTHER, SELFPAY | PROVIDERS: PCP Family Medicine; Visit Provider Family Medicine | DX: N89.8 Other specified noninflammatory disorders of vagina (principal) | CPT/HCPCS: 87210 ==

== ENCOUNTER → 2025-03-19 13:37 | Outpatient (CLI) | payer OTHER, SELFPAY ==
[2025-03-22 12:09] LABS: QuantiFERON Mitogen Value >10.00 IU/mL (.); QuantiFERON Nil Value 0.02 IU/mL (.); QuantiFERON TB Gold Plus Positive (Negative); QuantiFERON TB1 Ag Value 0.52 IU/mL (.); QuantiFERON TB2 Ag Value 0.68 IU/mL (.)
== END ==
LOC: LAB 13:38
PROVIDERS: PCP Family Medicine; Referring Provider Family Medicine; Visit Provider Family Medicine
DX: Z02.1 Encounter for pre-employment examination (principal)
CPT/HCPCS: 36415; 86480

== ENCOUNTER → 2025-03-24 12:49 | Outpatient (CLI) | payer OTHER, MEDICAID, SELFPAY ==
--- NOTE | 2025-03-24 12:54 | DI.RAD.S_ITS ---
PROCEDURE: XR CHEST 2V INDICATIONS: Positive for TB TECHNIQUE: 2 views of the chest were acquired. COMPARISON: [facility], , XR CHEST 2V, 03/08/2023, 12:49. FINDINGS: Surgical changes and devices: None. Lungs and pleura: Lungs are clear. Lungs appear hyperinflated, stable compared to prior. No pleural effusions or pneumothorax. Mediastinum: Mediastinal contours are normal. Heart size is normal. Bones and chest wall: No suspicious bony abnormalities. Soft tissues appear unremarkable. IMPRESSION: No acute cardiopulmonary abnormality is seen. Dictated by: Eduardo Muller M.D. on 03/24/2025 at 20:42 Approved by: Eduardo Muller M.D. on 03/24/2025 at 20:43
== END ==
PROVIDERS: PCP Family Medicine; Referring Provider Family Medicine; Visit Provider Family Medicine
DX: R76.12 Nonspecific reaction to cell mediated immunity measurement of gamma interferon antigen response without active tuberculosis (principal)
CPT/HCPCS: 71046